=== PATIENT | female | born 1995 | race Caucasian/White ===

== ENCOUNTER 2019-02-02 19:25 | Observation (INO) | payer BC ==
[~2019-02-02] VITALS: Ht 182.9 cm; Wt 68.9 kg
[2019-02-02 21:08] LABS: BASO % 0.2 % (0.0-2.0); EOS % 0.1 % (0-4.0); GRAN # 12.9 (1.4-6.5); GRAN % 86.8 % (42.2-75.2); HEMATOCRIT 37.5 % (37.0-47.0); MEAN CELL VOLUME 90 fl (80.0-100.0); MEAN CORPUSCULAR HEMOGLOBIN 31 pg (27.0-31.0); MEAN CORPUSCULAR HGB CONC 35 g/dl (33.0-37.0); MEAN PLATELET VOLUME 10.6 fl (7.4-10.4); MONO # 0.8 (0.1-0.6); MONO % 5.6 % (1.7-9.3); PLATELET COUNT 173 K/mm3 (130-400); RED BLOOD COUNT 4.17 M/mm3 (4.10-5.30); REDCELL DISTRIBUTION WIDTH-CV 11.7 % (11.5-14.5)
[2019-02-02 21:24] LABS: COLLECTION METHOD CLEAN CATCH
[2019-02-02 21:35] LABS: ALBUMIN 4.2 gm/dL (3.5-5.0); CALCIUM 8.7 mg/dL (8.4-10.2); CREATININE, serum 0.8 (0.52-1.25); POTASSIUM 3.6 mmol/L (3.4-5.0); TOTAL PROTEIN 6.7 gm/dL (6.4-8.2)
[2019-02-02 21:42] LABS: MUCOUS Present /lpf; PH 5 (5-8); SQUAMOUS EPITHELIAL 0-2 /hpf; URINE APPEARANCE Clear; URINE BACTERIA None Seen /hpf; URINE BILIRUBIN Negative (NEGATIVE); URINE BLOOD Negative (NEGATIVE); URINE COLOR Yellow; URINE GLUCOSE Negative (NEGATIVE); URINE KETONE 2+ (NEGATIVE); URINE LEUKOCYTE ESTERASE Negative (NEGATIVE); URINE NITRATE Negative (NEGATIVE); URINE PROTEIN(semi-quant) 1+ (NEGATIVE); URINE RBC 0-2 /hpf; URINE UROBILINOGEN Negative (NEGATIVE)
--- NOTE | 2019-02-02 23:30 | NUR ---
Patient brought to floor by , transferred independantly to bed. Upon assessment patient denies pain or n/v, stating that she doesn't hurt when she is laying down. 20 G to Right Hand. Plan is for patient to go down for lap appy at 0730. No other needs observed/reported.
[2019-02-02 23:36] VITALS: BP 115/60; PULSE 78; TEMP 98
[2019-02-02] MEDS ORDERED: NORTREL 35 MCG-1 TA1 (23:45)
[2019-02-03] VITALS (11 sets, daily range): BP systolic 109–132; BP diastolic 60–82; PULSE 77–98; TEMP 98–99.7
--- NOTE | 2019-02-03 08:00 | NUR ---
Patient alert and oriented, answers questions appropriately. Abdomen soft, non tender, non distended. Bowel sounds hyperactive x4 quads. +Flatus. No c/o at this time.
[2019-02-03] MEDS ORDERED: NORCO 325 MG-51 TAB PO (09:05)
[2019-02-03] MEDS ORDERED: MOTRIN 600600 MG/TAB PO (09:05)
[2019-02-03] MEDS ORDERED: COLACE 100100 MG/CAP PO (09:06)
[2019-02-03] MEDS ORDERED: [UNRECOGNIZED DRUG - REMARK] (09:08)
--- NOTE | 2019-02-03 09:35 | NUR ---
Patient returns from lap appy, assessment unchanged except for lap sites to abdomen with edges well approximated, no redness or drainage noted. Bowel sounds hypoactive. No c/o pain or discomfort.
--- NOTE | 2019-02-03 14:40 | NUR ---
Discharge instructions reviewed with patient and family. Verbalized understanding. Discharged ambulatory to auto/home with family at 1440.
== END 2019-02-03 14:40 | disposition home or self-care (01) ==
LOC: COL.ER 19:25 → SURG 22:32
PROVIDERS: Physician Assistant; ADMIT Surgery
DX: K35.80 Unspecified acute appendicitis (principal); K38.1 Appendicular concretions; Z79.899 Other long term (current) drug therapy
CPT/HCPCS: J0690; J1885; J2270; J2405; J2543; J2704; J3010; J7030; Q9967